=== PATIENT | male | born 1930 | race Caucasian/White ===

== ENCOUNTER 2017-01-04 10:52 | Observation (INO) | payer MEDICARE, OTHER ==
[2017-01-04] MEDS ORDERED: ASPIRIN CHEWTAB 81 MG TABLET ONE (11:18)
[2017-01-04 11:47] LABS: ABSOLUTE NEUTROPHIL COUNT 4.2 K/mm3 (1.8-7.7); BASO % 0.7 % (0.2-1.0); EOS # 0.1 (0.0-0.5); EOS % 1.6 % (0.9-2.9); HEMATOCRIT 29.3 % (32.0-52.0); HEMOGLOBIN 9.7 gm/l (14.0-18.0); IMM NEUT% 0.7 % (0-1); LYMPH # 0.8 (1.0-4.8); LYMPH % 14.7 % (15-45); MEAN CELL VOLUME 98.7 fl (80.0-94.0); MEAN CORPUSCULAR HEMOGLOBIN 32.7 pg (27.0-31.0); MEAN CORPUSCULAR HGB CONC 33.1 g/dl (33.0-37.0); MEAN PLATELET VOLUME 8.9 fl (7.4-10.4); MONO # 0.4 (0.0-0.8); MONO % 6.7 % (4-12); NEUT % 75.6 % (43-75); PLATELET COUNT 210 K/mm3 (130-400); RED CELL DISTRIBUTION WIDTH 12.6 % (11.5-14.5)
[2017-01-04 11:59] LABS: TROPONIN I < 0.01 ng/ml (0.0-0.06)
[2017-01-04 12:00] LABS: ALB/GLOB RATIO 1.1 (>1.0); ALBUMIN 3.6 gm/dL (3.5-5.7); CALCIUM 8.9 mg/dL (8.6-10.3); MAGNESIUM 1.9 mg/dL (1.9-2.7)
[2017-01-04 12:05] LABS: CKMB ISOENZYME 4.1 ng/ml (0.6-6.3)
--- NOTE | 2017-01-04 12:13 | RAD ---
01/04/2017 12:07 PM CHEST - 2 VIEWS History: Chest pain, shortness of breath. Comparison: 10/20/2012 Findings: Two views of the chest are obtained. The lungs are clear with out effusion or pneumothorax. The cardiomediastinal silhouette is unremarkable.. The osseous structures are intact.. Hyperinflation is again noted. IMPRESSION: No acute intrathoracic process.
[2017-01-04] MEDS ORDERED: REGADENOSON 0.1 MG DOSE IV ONE (13:27)
[2017-01-04 14:18] VITALS: BMI 29.4
[2017-01-04] MEDS ORDERED: MENTHOL/CETYLPYRD 1 EACH LOZENGE PO PRN (15:47)
[2017-01-04] MEDS ORDERED: BISACODYL 10 MG SUP PR PRN (15:47)
[2017-01-04] MEDS ORDERED: ACETAMINOPHEN 325 MG TABLET PO PRN (15:47)
[2017-01-04] MEDS ORDERED: MAGNESIUM HYDROXIDE 30 ML UDCUP PO PRN (15:47)
[2017-01-04] MEDS ORDERED: BISACODYL 5 MG TABLET.EC PO PRN (15:47)
[2017-01-04] MEDS ORDERED: BLISTEX LIPSTICK 1 EACH TP PRN (15:47)
[2017-01-04] MEDS ORDERED: SODIUM CHLORIDE 0.9% 100 ML IV PRN (15:47)
[2017-01-04] MEDS ORDERED: ENOXAPARIN SODIUM 40 MG/0.4 ML SYRINGE SUB-Q SCH (16:00)
[2017-01-04 17:02] LABS: URINE BILIRUBIN NEGATIVE (NEGATIVE); URINE BLOOD TRACE (NEGATIVE); URINE GLUCOSE (UA) NEGATIVE (NEGATIVE); URINE LEUKOCYTE ESTERASE NEGATIVE (NEGATIVE); URINE NITRITE NEGATIVE (NEGATIVE); URINE PROTEIN NEGATIVE (NEGATIVE); URINE UROBILINOGEN NORMAL (0-1 mg/dl)
[2017-01-04 17:10] LABS: URINE APPEARANCE CLEAR; URINE COLOR YELLOW
[2017-01-04 17:12] LABS: URINE EPITHELIAL CELLS 0 /hpf; URINE RBC 0-2 /hpf; URINE WBC NEG /hpf
[2017-01-04 17:17] LABS: URINE BACTERIA 0
[2017-01-04 17:49] LABS: INR 1.01; PROTHROMBIN TIME 10.6 SECONDS (9.3-11.4)
[2017-01-04 18:02] LABS: FOLIC ACID 12.1 ng/mL (>5.9)
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
[2017-01-04 19:01] LABS: IRON 48 ug/dL (50-212); TOTAL IRON BINDING CAPACITY 266 ug/dL (261-478); TRANSFERRIN 190 mg/dL (203-362)
[2017-01-04] MEDS: TAMSULOSIN HCL 0.4 MG CAPSULE.DR PO SCH (20:25)
[2017-01-04] MEDS: METOPROLOL TARTRATE 25 MG TABLET PO SCH (20:25)
[2017-01-04] MEDS: DOCUSATE SODIUM 100 MG CAPSULE PO SCH (22:18)
[2017-01-05 06:08] LABS: ABSOLUTE NEUTROPHIL COUNT 3.4 K/mm3 (1.8-7.7); BASO % 0.8 % (0.2-1.0); EOS # 0.1 (0.0-0.5); EOS % 2.1 % (0.9-2.9); HEMATOCRIT 27.7 % (32.0-52.0); HEMOGLOBIN 9.2 gm/l (14.0-18.0); IMM NEUT% 0.2 % (0-1); LYMPH # 0.9 (1.0-4.8); LYMPH % 17.6 % (15-45); MEAN CELL VOLUME 98.2 fl (80.0-94.0); MEAN CORPUSCULAR HEMOGLOBIN 32.6 pg (27.0-31.0); MEAN CORPUSCULAR HGB CONC 33.2 g/dl (33.0-37.0); MONO # 0.5 (0.0-0.8); MONO % 9.5 % (4-12); NEUT % 69.8 % (43-75); PLATELET COUNT 204 K/mm3 (130-400); RED CELL DISTRIBUTION WIDTH 12.5 % (11.5-14.5)
[2017-01-05 06:28] LABS: TROPONIN I 0.01 ng/ml (0.0-0.06)
[2017-01-05 06:31] LABS: ALB/GLOB RATIO 1.1 (>1.0); ALBUMIN 3.3 gm/dL (3.5-5.7); CALCIUM 8.8 mg/dL (8.6-10.3)
[2017-01-05 06:39] LABS: THYROID STIMULATING HORMONE 1.28 uIU/ml (0.34-5.60)
[2017-01-05 06:45] LABS: FREE T4 0.93 ng/dL (0.58-1.64)
[2017-01-05] MEDS ORDERED: MULTIVITAMINS 1 TAB TABLET PO SCH (09:00)
[2017-01-05] MEDS ORDERED: ASPIRIN (ENTERIC COATED) 81 MG TABLET.EC PO SCH (09:00)
[2017-01-05] MEDS ORDERED: CYANOCOBALAMIN 1,000 MCG/ML VIAL SUB-Q SCH (09:30)
--- NOTE | 2017-01-05 11:09 | NUC MED ---
EXAMINATION: Nuclear medicine myocardial perfusion sestamibi scan. Stress and rest imaging with SPECT. 3-D gated wall motion analysis. And cardiac ejection fraction. Clinical indication: Dyspnea. Comparison:none Technique: At rest, 11.3 mCi of tc-99m sestamibi was administered intravenously. SPECT images were acquired in standard fashion. Following this, 0.4 mg of Lexiscan was administered intravenously. Post stress SPECT images were acquired following uneventful administration of 36.2 mCi of Tc-99m Sestamibi. 3-D gated wall motion analysis was acquired. Cardiac ejection fraction was calculated. Findings: Stress and rest images exhibit a small fixed perfusion defect involving the inferior wall. This is minimal in size. On the post Lexiscan images there is apparent diminished perfusion in the inferolateral wall near the base. No other areas of stress-induced diminished perfusion are identified. 3-D data wall motion analysis exhibits no akinetic or dyskinetic segments. No focal hypokinesis is delineated in the region of diminished perfusion. Cardiac ejection fraction is measured at 75%. IMPRESSION: 1. Small focus of apparent in stress-induced diminished perfusion inferolateral lateral wall near the base. This most commonly is the circumflex artery. 2. Apparent fixed defect of the inferior wall of the body. This may be due to technical factors. A subendocardial scar though considered less likely cannot be excluded. 3. No wall motion abnormalities are identified. 4. Cardiac ejection fraction 75%. 5. Findings were discussed with Dr. Daniels 11:05 AM 01/05/2017
[2017-01-05] MEDS: METOPROLOL TARTRATE 25 MG TABLET PO SCH (13:01)
[2017-01-05] MEDS: DOCUSATE SODIUM 100 MG CAPSULE PO SCH ×2 (13:01→13:04)
[2017-01-05] MEDS: TAMSULOSIN HCL 0.4 MG CAPSULE.DR PO SCH (13:10)
[2017-01-05 14:24] VITALS: BP 149/80
--- NOTE | 2017-01-06 06:14 | DS ---
Percy Saravia [id number] DATE OF ADMISSION: 01/04/2017 DATE OF DISCHARGE: 01/05/2017 DISCHARGE DIAGNOSES: 1. Palpitations. 2. Dyspnea. 3. History of paroxysmal Atrial Fibrillation. 4. Iron deficiency anemia. 5. B12 deficiency. 6. History of prostate cancer treated with Lupron and radiation. 7. Peripheral neuropathy. 8. Benign prostatic hypertrophy. TO SUMMARIZE THE ADMISSION AND HOSPITAL COURSE: The patient is an 86-year-old male who presented with complaints of episodic dizziness and palpitations. They seem to be associated with high caffeine use. His granddaughters checked his heart rate and noted it to be as high as 190. He will get short of breath when this occurs. These episodes have passed and resolved spontaneously, but he had an episode on the day of presentation and workup showed sinus rhythm with a rate of 64 beats per minute, stable vital signs, but given his history he was referred to the hospitalist service for observation. His lab work showed a hemoglobin of 9.7 and normal electrolytes. Because of his anemia he had further studies done showing an iron deficiency with a serum iron of 48 and transferrin saturation of 18. He also had a borderline B12 level in the indeterminate range of 174. Thyroid studies were normal. Overnight his hemoglobin was stable. He was monitored on telemetry overnight and had no tachy arrhythmia's or abnormalities on his rhythm strip. He underwent a echocardiogram, the final report is still pending, but no significant abnormalities were identified on an echocardiography. He had a Lexiscan myocardial perfusion study which showed no wall motion abnormalities and a normal ejection fraction of 75%. The small area of stress induced decreased perfusion felt to be either artifact versus a small area of ischemia. Also a small defect in the inferior wall which was fixed which could be due to scar versus artifact. His enzymes as I mentioned remained negative during his stay and he had no chest pain. He was felt to be medically stable for discharge on January 05. PHYSICAL EXAMINATION: VITAL SIGNS: His vitals at discharge showed a body mass index of 27.6, a weight of 92, temperature 98.1, pulse 59, blood pressure 149/80, respirations 18, oxygen saturation 98% on room air. GENERAL: This is a thin elderly male in no acute distress. HEENT: Moist pink oral mucosa. No lesions. NECK: Supple without lymphadenopathy or thyromegaly. LUNGS: Clear to ascultation bilaterally. CARDIOVASCULAR: Revealed a regular rate and rhythm without a murmur. ABDOMEN: Soft, nontender, nondistended with positive bowel sounds. EXTREMITIES: No peripheral edema. DISCHARGE CONDITION: Good. DISCHARGE INSTRUCTIONS: A 30 day Holter monitor has been ordered to screen for further arrhythmia's. Consider putting the patient on a beta jas, however, his resting heart rate throughout his hospital stay was between 50 and 60. DISCHARGE MEDICATIONS: Include: 1. Flomax 0.4 mg twice daily. 2. Multivitamin once daily. 3. Enteric coated aspirin 81 mg daily. FOLLOW UP: Follow up appointment was scheduled with Dr. Anne Marie Byrne on January 15 at 1500. I did not start the patient on iron therapy. He did get a B12 shot prior to discharge with 1000 mcg. I am going to send an electronic message to Dr. Byrne requesting that she prescribe him iron therapy and possibly B12 therapy as an outpatient. JOB: [id number] CC: Dr. Anne Marie Byrne
== END 2017-01-05 15:35 | disposition home or self-care (01) ==
LOC: ED 10:52 → MS 13:26
PROVIDERS: ADMIT Family Medicine; ATTEND Family Medicine
DX: R00.2 Palpitations (principal); R06.00 Dyspnea, unspecified; I48.0 Paroxysmal atrial fibrillation; D50.9 Iron deficiency anemia, unspecified; E53.8 Deficiency of other specified B group vitamins; Z85.46 Personal history of malignant neoplasm of prostate; G62.9 Polyneuropathy, unspecified; N40.0 Benign prostatic hyperplasia without lower urinary tract symptoms
CPT/HCPCS: 85025 ×2; 82553; 80053 ×2; 82728; 82746; 84439; 83540; 83550; 83735; 85610; 85045; 84443; 84484 ×3; 81001; 82607; 36415 ×2; 71020; 78452; 97161; 99285 ×2; 93306; 93017; 93270; 93005 ×2; A9270 ×5; J3420; J1650; J2785; A9500; G8978; G8979; G8980